=== PATIENT | male | born 2000 | race Caucasian/White ===

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

== ENCOUNTER 2020-12-25 12:19 | Emergency (ER) | payer OTHER ==
[~2020-12-25] VITALS: Ht 170.2 cm; Wt 63.5 kg
[~2020-12-25 12:19] MED LIST changes: +ZOFRAN ODT4 MG DISSOLVE
[2020-12-25] MEDS ORDERED: IBUPROFEN 800800 M1 PO (13:29)
[2020-12-25 13:35] VITALS: BP 132/65
== END 2020-12-25 13:36 | disposition home or self-care (01) ==
LOC: M.ERS 12:19
DX: S06.0X0A Concussion without loss of consciousness, initial encounter (principal); X58.XXXA Exposure to other specified factors, initial encounter; Y93.89 Activity, other specified; Y92.89 Other specified places as the place of occurrence of the external cause; Y99.8 Other external cause status